=== PATIENT | male | born 1985 | race Two or more races ===

== ENCOUNTER 2020-03-28 22:09 | Emergency (ER) | payer OTHER, SELFPAY ==
[2020-03-28 22:19] VITALS: BP 126/73; PULSE 87; RESP 20; TEMP 37.2; O2SAT 100; BMI 24.8
[2020-03-28 23:27] VITALS: BP 128/84; PULSE 87; RESP 21; TEMP 37; O2SAT 100
[2020-03-28 23:36] VITALS: BP 125/90; PULSE 74
[2020-03-29 00:22] LABS: MANUAL DIFF FLAG NO
[2020-03-29 00:24] LABS: Basophils Percent Auto 0.4 % (0-2); Eosinophils Absolute Auto 0.1 X10*3/uL (0.0-0.4); Eosinophils Percent Auto 1.9 % (0-4); Hematocrit 43.3 % (42-52); Hemoglobin 15.2 g/dl (14.0-18.0); Imm Gran Abs Auto 0.02 X10*3/uL (0.00-0.03); Imm Gran Pct Auto 0.3 % (0.0-0.4); Lymphocytes Percent Auto 26.7 % (20-40); Mean Corpuscular HGB Conc 35.1 g/dl (31.0-36.0); Mean Corpuscular Hemoglobin 29.9 pg (27.0-33.0); Mean Corpuscular Volume 85.2 fL (80-98); Mean Platelet Volume 10.2 fL (9.4-12.4); Monocytes Absolute Auto 0.7 X10*3/uL (0.1-1.2); Monocytes Percent Auto 9.4 % (2-11); Neutrophils Absolute Auto 4.6 X10*3/uL (2.0-8.3); Neutrophils Percent Auto 61.3 % (45-73); Platelet Count 245 X10*3/uL (160-400); Red Blood Count 5.08 X10*6/uL (4.60-5.80); White Blood Count 7.5 X10*3/uL (4.8-10.8)
--- NOTE | 2020-03-29 00:45 | ED_ITS ---
HPI - Dizziness General Chief Complaint: General Medical Stated Complaint: dizzyness,SOB Time Seen by Provider: 03/28/20 23:27 History of Present Illness HPI Narrative: this is a 34-year-old male who is presenting with worsening feelings of lightheadedness as he is very clear that the room is not spinning and he states that this has been worsening since he was evaluated here in January. This is not been associated with any fevers, chills, recent travel, sore throat, cough, shortness of breath, chest pain / palpitations, speech or hearing changes. However he states that he is so dizzy throughout the day that he is unable to get up and has felt very fatigued. He endorses that he has been tested for COVID-19 at least twice and they have all been negative. In addition, he states he has been evaluated by his primary care provider yesterday and has been sent for a series of lab investigations. He denies any recent weight loss muscle or joint pain. 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 [facility] Past Medical History Medical History High cholesterol Social History Social History Alcohol intake: never Smoking Status: Never smoker Use of substances other than those prescribed or required for medical reasons: No Advance Directives: No Advance Directives Information Provided: No Physical Exam Vital Signs and I&O and Narrative: Vital Signs and I&O: Vital Signs Temp 98.6 F 03/28/20 23:27 Pulse 74 03/28/20 23:36 Resp 21 H 03/28/20 23:27 BP 125/90 H 10/03/20 23:36 Pulse Ox 100 03/28/20 23:27 Intake & Output 03/28/20 03/28/20 03/29/20 06:59 18:59 06:59 Weight 74.096 kg Body Mass Index 24.8 VITAL SIGNS: Reviewed. GENERAL: Well developed, well nourished, in no acute distress. HEAD: Normocephalic/atraumatic, EYES: PERRLA, EOMI intact without pain, no nystagmus/pallor/icterus noted EARS: Ext canals without abnormality, TMs non-bulging and non-erythematous NOSE: Nares patent bilateral OROPHARYNX: no oral lesions noted, posterior pharynx clear and non-erythematous without noted tonsillar enlargement/erythema/exudates NECK: Supple, no adenopathy LUNGS: Normal breath sounds. No adventitious sounds or accessory muscle use. SpO2<> CARDIOVASCULAR: Regular rate and rhythm without noted murmurs, no JVD or lower extremity edema. ABDOMEN: Soft, non-tender, non-distended with bowel sounds. No rigidity. No guarding. No palpable masses or hernias noted MUSCULOSKELETAL: No tenderness, deformities, or effusions noted on gross inspection. EXTREMITIES: No cyanosis, clubbing or edema. SKIN: Inspection of the skin reveals no rashes, ulcerations, jaundice, pallor, or petechiae. NEUROLOGIC: Alert and oriented x 4. Strength and sensation to light touch were grossly intact , ambulation without ataxia Course Course Hospital Course: This is a 34-year-old male with history and clinical presentation most suggestive of anxiety, but will evaluate for possible infectious, anemia, v olume, or electrolyte abnormalities. All of his previous workup from 02/18 was reviewed and at that time patient had a CT of the head as well as a CTA of the chest that were negative. Review of all lab work and imaging is negative for any acute findings. All results and findings were discussed with the patient at bedside and he was agreeable to being discharged with a mild anxiolytics and to be patient with the outpatient evaluation his primary care provider has started. MDM - Dizziness Lab Data Result diagrams: 03/29/20 00:15 03/29/20 00:15 Labs: Lab Results 03/29/20 03/29/20 Range/Units 00:15 00:15 WBC 7.5 (4.8-10.8) X10*3/uL RBC 5.08 (4.60-5.80) X10*6/uL Hgb 15.2 (14.0-18.0) g/dl Hct 43.3 (42-52) % MCV 85.2 (80-98) fL MCH 29.9 (27.0-33.0) pg MCHC 35.1 (31.0-36.0) g/dl RDW 12.0 (11.0-16.0) % Plt Count 245 (160-400) X10*3/uL MPV 10.2 (9.4-12.4) fL Immature Gran % (Auto) 0.3 (0.0-0.4) % Neut % (Auto) 61.3 (45-73) % Lymph % (Auto) 26.7 (20-40) % [place] % (Auto) 9.4 (2-11) % Eos % (Auto) 1.9 (0-4) % Baso % (Auto) 0.4 (0-2) % Neut # (Auto) 4.6 (2.0-8.3) X10*3/uL Lymph # (Auto) 2.0 (1.2-4.9) X10*3/uL [place] # (Auto) 0.7 (0.1-1.2) X10*3/uL Eos # (Auto) 0.1 (0.0-0.4) X10*3/uL Baso # (Auto) 0.0 (0.0-0.2) X10*3/uL Abs Immat Gran (auto) 0.02 (0.00-0.03) X10*3/uL Absolute Nucleated RBC 0.000 (0.0-0.012) X10*3/uL Nucleated RBC % (auto) 0.0 (0.0-0.2) /100WBC Sodium 140 (135-145) mmol/L Potassium 3.8 (3.3-5.1) mmol/l Chloride 107 (96-108) mmol/L Carbon Dioxide 26 (22-29) mmol/L Anion Gap 11 L (12-20) BUN 16 (9-16) mg/dL Creatinine 0.94 (0.5-1.4) mg/dL Estim Creat Clear Calc 107.1 Estimated GFR > 60 Random Glucose 114 (60-115) mg/dL Calcium 9.4 (8.4-10.2) mg/dL Total Bilirubin 0.4 (0.0-1.0) mg/dL AST 23 (5-37) U/L ALT 54 H (0-40) U/L Alkaline Phosphatase 128 H (39-117) U/L Total Protein 7.5 (6.5-8.0) g/dL Albumin 4.6 (3.5-5.0) g/dL TSH 0.44 (0.32-4.0) mIU/mL Discharge Plan Discharge Clinical Impression: Dizziness of unknown cause Patient Disposition: Home, Self-Care Instructions: Lightheadedness (ED) Additional Instructions: 1. Resume all home medications as prescribed. 2. continue to stay well hydrated. The patient and/or family acknowledge understanding of results (as applicable), diagnosis, treatment plan, need for follow up, and symptoms that should prompt a return to the emergency room. For example, fevers /chills/diarrhea. Prescriptions: New hydroxyzine HCl 50 mg tablet 50 mg PO TID PRN (Reason: anxiety) Qty: 7 RF: 0 No Action meclizine 25 mg tablet 1 tab PO Q8H PRN (Reason: dizziness) RF: 0 Referrals: Physician,Unknown [Primary Care Provider] - 2 days ( for further outpatient workup regarding your dizziness.)
[2020-03-29 00:49] LABS: Alanine Aminotransferase 54 U/L (0-40); Albumin Level 4.6 g/dL (3.5-5.0); Alkaline Phosphatase 128 U/L (39-117); Anion Gap 11 (12-20); Aspartate Amino Transferase 23 U/L (5-37); Bilirubin Total 0.4 mg/dL (0.0-1.0); Blood Urea Nitrogen 16 mg/dL (9-16); Calcium 9.4 mg/dL (8.4-10.2); Carbon Dioxide 26 mmol/L (22-29); Chloride 107 mmol/L (96-108); Creatinine Clr Calc Pharmacy 107.1; Estimated Glomerular Filt Rate > 60; Glucose Random 114 mg/dL (60-115); Potassium 3.8 mmol/l (3.3-5.1); Sodium 140 mmol/L (135-145); Total Protein 7.5 g/dL (6.5-8.0)
--- NOTE | 2020-03-29 01:05 | US_ITS ---
EXAMINATION: ABDOMINAL ULTRASOUND LIMITED CLINICAL INFORMATION: Right upper quadrant pain. COMPARISON: None. TECHNIQUE: Real-time imaging of the right upper quadrant abdominal viscera. FINDINGS: PANCREAS: The visualized pancreatic head and body are normal in appearance. The remainder of the pancreas is obscured from visualization by the overlying bowel gas. LIVER: The liver is of normal size and echogenicity without focal lesions nor intrahepatic biliary ductal dilation. GALLBLADDER: There are calculi within the gallbladder lumen. There is no gallbladder wall thickening or pericholecystic fluid. COMMON BILE DUCT: Normal in caliber measuring 0.2 cm in diameter. RIGHT KIDNEY: Normal. No hydronephrosis. No renal calculi or focal parenchymal lesions. The kidney measures 11.7 cm in maximum dimension. FREE FLUID: None. IMPRESSION: Cholelithiasis without evidence of cholecystitis.
[2020-03-29 01:10] LABS: TSH reflex Free T4 0.44 mIU/mL (0.32-4.0)
== END 2020-03-29 03:41 | disposition home or self-care (01) ==
PROVIDERS: Emergency Provider Student in an Organized Health Care Education/Training Program
DX: R42 Dizziness and giddiness (principal)
CPT/HCPCS: 36415; 76705; 80053; 84443; 85025; 99284

== ENCOUNTER 2020-03-29 08:30 | Emergency (ER) | payer OTHER, SELFPAY ==
--- NOTE | 2020-03-29 | CT_ITS ---
EXAMINATION: CT HEAD WITHOUT CONTRAST CLINICAL INFORMATION: Left-sided headache. Vision changes. Dizziness. COMPARISON: CT scan of the head dated 02/19/2020. TECHNIQUE: Contiguous axial imaging was performed from the skull base to vertex without intravenous administration of contrast. This CT examination was performed using dose optimization techniques as appropriate, variously including the following: *Automated exposure control *Adjustment of mA and/or kV according to patient size (this includes techniques or standardized protocols for targeted exams where dose is matched to indication/reason for exam; i.e. extremities or head) *Use of iterative reconstruction technique DLP: 672.66 mGy-cm FINDINGS: There is no evidence of acute intracranial hemorrhage or territorial infarction. No abnormal mass effect or midline shift is seen. Jules to white matter differentiation is well preserved. No extra-axial fluid collections are identified. The ventricles are normal in size. There is no abnormal attenuation within the brain parenchyma. The osseous structures and soft tissues are normal. The mastoid air cells and visualized portions of the paranasal sinuses are well aerated. IMPRESSION: No acute intracranial pathology.
[2020-03-29 08:39] VITALS: PULSE 75; RESP 16; TEMP 36.8; O2SAT 98; BMI 24.7
[2020-03-29] MEDS: Meclizine HCl 25 MG TABLET 50 MG PO (09:43)
[2020-03-29 09:45] VITALS: BP 126/86; PULSE 73; RESP 16; TEMP 37; O2SAT 99
--- NOTE | 2020-03-29 11:05 | MR_ITS ---
MRI OF THE BRAIN WITHOUT IV CONTRAST INDICATION: Headache, numbness, dizziness, and vision changes. COMPARISON: Head CT performed earlier the same day. TECHNIQUE: Multiplanar multisequence MR imaging of the brain was obtained without IV contrast. FINDINGS: There is no hydrocephalus, extra-axial surface collection, or herniation. No parenchymal signal abnormality. The major flow voids at the skull base are preserved. There is no acute infarct on diffusion-weighted imaging. There is no intracranial hemorrhage on the gradient recalled echo acquisition. The midline structures are normal. The cerebellar tonsils are normally positioned. The cerebellum and brainstem are normal. The craniocervical junction is normal. Osseous marrow signal intensity is homogenous. The visualized soft tissues are unremarkable. IMPRESSION: Unremarkable noncontrast MRI of the brain.
[2020-03-29 11:07] VITALS: BP 118/82; PULSE 73; RESP 16; O2SAT 98
[2020-03-29 12:25] VITALS: BP 125/87; PULSE 72; RESP 15; TEMP 37.1; O2SAT 99
--- NOTE | 2020-03-29 17:20 | ED_ITS ---
HPI - Headache General Chief Complaint: Headache Stated Complaint: headache Time Seen by Provider: 03/29/20 08:45 Source: patient Mode of arrival: ambulatory Limitations: no limitations History of Present Illness HPI Narrative: Otherwise healthy 34-year-old male who presents ambulatory via triage with complaint of left-sided headache that goes to the front from the occipital lobe and some vision changes right eye. It is basically he reports to me that 38 days ago he started having vague dizziness and constellation of other symptoms for which she has been seen here several times in the ER he has had a battery of testing including CT scan of his brain, CTA of the chest, work including thyroid testing cardiac enzymes and ultrasound of the abdomen for his symptoms. States his symptoms are now the fact that he is having the left-sided headache and some dizziness which this morning after leaving the ED he went to sleep in several hours later he woke up with the headache just 1 hour prior to arrival. States his vision with diminished in the right side. Headache as described as ache and dizziness is described as feeling off but not room spinning. He otherwise denies chest pain or shortness of breath. He is very punctual and his history and tells me that he has been here as well as to [facility]. MD elicited complaint: headache Onset (ago): minute(s) Onset description: gradually Location: left, frontal and occipital Severity: moderate Quality & Timing: aching Related Data Home Medications Medication Instructions Recorded Confirmed meclizine 1 tab PO Q8H PRN 03/29/20 03/29/20 Previous Rx's Medication Instructions Recorded hydroxyzine HCl 50 mg PO TID PRN #7 tab 03/29/20 Allergies Allergy/AdvReac Type Severity Reaction Status Date / Time No Known Allergies Allergy Verified 03/28/20 22:18 [No Known Allergies*] Review of Systems Review of Systems: Constitutional: No Weight loss, No Fever, No Chills, No Night Sweats, No Fatigue, No Malaise ENT/Mouth: No Hearing loss, No Ear Pain, No Nasal Congestion, No Sinus Pain, No Hoarseness, No sore throat, No Rhinorrhea, No Swallowing Difficulty Eyes: No Eye Pain, No Swelling, No Redness, No Foreign Body, No Discharge, No Vision Changes Cardiovascular: No Chest Pain, No SOB, No Dyspnea on Exertion, No Orthopnea, No Edema, No Palpitations Respiratory: No Cough, No Sputum, No Wheezing, No Smoke Exposure, No Dyspnea Gastrointestinal: No Nausea, No Vomiting, No Diarrhea, No Constipation, No abdominal Pain, No Hematochezia, No Melena Genitourinary: no irregular bleeding, No Dysuria, No Urinary Frequency, No Hematuria, No Urinary Incontinence, No Urgency, No Flank Pain, No Urinary Flow Changes, No Hesitancy Musculoskeletal: No joint pain, No Myalgias, No Joint Swelling Skin: No Skin Lesions, No rash Neuro: No Weakness, No Numbness, No Paresthesias, No Loss of Consciousness, + Dizziness, + Headache Psych: No Anxiety/Panic, No Depression, No SI/HI/AH/VH, No Social Issues, Heme/Lymph: No Bruising, No Bleeding,No Lymphadenopathy Endocrine: No Polyuria, No Polydipsia, No Temperature Intolerance [facility] Past Medical History Attestation statement: The following information was validated with the patient. Medical History High cholesterol Social History Social History Alcohol intake: never Smoking Status: Never smoker Smoked in Last 30 Days: No Use of substances other than those prescribed or required for medical reasons: Unknown Advance Directives: No Advance Directives Information Provided: No Physical Exam Vital Signs and I&O and Narrative: Vital Signs and I&O: Vital Signs Temp 98.7 F 03/29/20 12:25 Pulse 72 03/29/20 12:25 Resp 15 03/29/20 12:25 BP 125/87 03/29/20 12:25 Pulse Ox 99 03/29/20 12:25 Intake & Output 03/28/20 03/29/20 03/29/20 18:59 06:59 18:59 Weight 73.936 kg Body Mass Index 24.7 Const: General: cooperative and healthy appearing; No acute distress or intoxicated appearing Nutritional Appearance: average body habitus Orientation/consciousness: patient oriented x3 HENMT: Head: Yes normal to inspection Ears: hearing grossly normal bilaterally Eyes: General: appearance normal, both eyes and all related structures Visual Barton: normal visual barton by confrontation Neck: Neck: Yes normal visual inspection, No positive Brudzinski's sign, No positive Kernig's sign and No tender Thyroid: Thyroid normal Chest: Chest palpation & inspection: normal inspection of the chest Resp: Effort & Inspection: normal respiratory effort Cardio: Jugular venous distension: no JVD GI: Inspection: Yes normal to inspection Percussion: Yes normal to percussion Auscultation: normal bowel sounds : General: Yes no CVA tenderness Back/Spine/Pelvis: Back: no CVA tenderness Skin: General skin exam: no rashes or lesions noted Neuro: General: patient oriented x3 Extrem: General: Yes normal to inspection Course Course Hospital Course: Given 50 of meclizine p.o.. Resting comfortably. Given the acuity of symptoms CTA of the brain was done this was negative. Case discussed with attending recommendation for MRI. Labs reviewed from several hours ago during the previous visit. No need to repeat labs. Reevaluation(s) Reevaluation #1: Has been sleeping comfortably. Did get out of bed to go to bathroom with steady gait. CT of the brain negative. MRI pending. Reevaluation #2: I suspect his symptoms has a component of anxiety although there are no acute findings on the CT and MRI of the brain. He had a battery of testing done. He does appointment coming up with his primary care doctor who ordered a better testing on Monday including Lyme test and such. He will follow-up with him copy of his workup provided. At this time is well nontoxic appearing. He was given hydroxyzine on the previous visit advised to continue taking this. Clear precaution return follow-up provided. He is stable for discharge. Consultations Consultation #1: Attending Dr. Barrera MDM - Headache Differential Diagnosis Differential diagnosis: Likely migraine, tension headache and headache; Unlikely subarachnoid hemorrhage, meningitis, sinusitis and postconcussion syndrome Medical Records Medical records narrative: MS, BPV Lab Data Attestation: I reviewed the patient's lab results. Imaging Data MRI - head: Radiologist's impression: [address] [address] Magnetic Resonance Report Signed Patient: Roe Kaplan#: [id number] : 1985Acct:[id number] Age/Sex: 34 / MADM Date: 03/29/20 Loc: HO.ED Attending Dr: Ordering Physician: Galen Thapa NP Date of Service: 03/29/20 Procedure(s): MR head/brain wo con Accession Number(s): [id number] cc: ~ MRI OF THE BRAIN WITHOUT IV CONTRAST INDICATION: Headache, numbness, dizziness, and vision changes. COMPARISON: Head CT performed earlier the same day. TECHNIQUE: Multiplanar multisequence MR imaging of the brain was obtained without IV contrast. FINDINGS: There is no hydrocephalus, extra-axial surface collection, or herniation. No parenchymal signal abnormality. The major flow voids at the skull base are preserved. There is no acute infarct on diffusion-weighted imaging. There is no intracranial hemorrhage on the gradient recalled echo acquisition. The midline structures are normal. The cerebellar tonsils are normally positioned. The cerebellum and brainstem are normal. The craniocervical junction is normal. Osseous marrow signal intensity is homogenous. The visualized soft tissues are unremarkable. IMPRESSION: Unremarkable noncontrast MRI of the brain. Dictated By:JESSIE CHA MD Signed By:<Electronically signed by JESSIE CHA MD in OV>03/29/20 1209 DD/ 1105 TD/TT: Wrapper Stemmer Operator: HANDY CT scan - head: Radiologist's impression: [address] [address] [address] Scan Report Signed Patient: Roe Kaplan#: [id number] : 1985Acct:[id number] Age/Sex: 34 / MADM Date: 03/29/20 Loc: HO.ED Attending Dr: Ordering Physician: Galen Thapa NP Date of Service: 03/29/20 Procedure(s): CT head/brain wo con Accession Number(s): [id number] cc: ~ EXAMINATION: CT HEAD WITHOUT CONTRAST CLINICAL INFORMATION: Left-sided headache. Vision changes. Dizziness. COMPARISON: CT scan of the head dated 02/19/2020. TECHNIQUE: Contiguous axial imaging was performed from the skull base to vertex without intravenous administration of contrast. This CT examination was performed using dose optimization techniques as appropriate, variously including the following: *Automated exposure control *Adjustment of mA and/or kV according to patient size (this includes techniques or standardized protocols for targeted exams where dose is matched to indication/reason for exam; i.e. extremities or head) *Use of iterative reconstruction technique DLP: 672.66 mGy-cm FINDINGS: There is no evidence of acute intracranial hemorrhage or territorial infarction. No abnormal mass effect or midline shift is seen. Jules to white matter differentiation is well preserved. No extra-axial fluid collections are identified. The ventricles are normal in size. There is no abnormal attenuation within the brain parenchyma. The osseous structures and soft tissues are normal. The mastoid air cells and visualized portions of the paranasal sinuses are well aerated. IMPRESSION: No acute intracranial pathology. Dictated By:TON FLEMING MD Signed By:<Electronically signed by TON FLEMING MD in OV>03/29/20 1012 DD/ 0949 TD/TT: Wrapper Stemmer Operator: JERMOY Discharge Plan Discharge Clinical Impression: Dizziness of unknown cause Patient Disposition: Home, Self-Care Instructions: Dizziness (ED) Additional Instructions: Have given you the blood work copy as well as the copy of all the imaging- please follow-up with primary care doctor as planned return if any concerns or worsening symptoms. Prescriptions: No Action meclizine 25 mg tablet 1 tab PO Q8H PRN (Reason: dizziness) RF: 0 hydroxyzine HCl 50 mg tablet 50 mg PO TID PRN (Reason: anxiety) Qty: 7 RF: 0 Referrals: Baldev Brooks MD [Primary Care Provider] - 2 days Interventions: ED Discharge Assessment Last Done: 03/29/20 13:57 Discharge Date/Time: 03/29/20 13:58
== END 2020-03-29 13:58 | disposition home or self-care (01) ==
PROVIDERS: Emergency Provider Emergency Medicine; PCP Pediatrics
DX: R42 Dizziness and giddiness (principal); R51.9 Headache, unspecified
CPT/HCPCS: 70450; 70551; 99284; 99285

== ENCOUNTER → 2020-07-06 09:10 | Outpatient (REF) | payer OTHER, SELFPAY ==
--- NOTE | 2020-07-06 09:15 | CA_ITS ---
Acquisition Time: 2020-07-06 10:26:32 Total Exercise Time: 00:08:03 Test Indications: CHEST PAIN, SHORTNESS OF BREATH Medications: SEE CHART Protocol: SANA Max HR: 164 BPM 88% of Pred: 185 BPM Max BP: 152/090 mmHG Max Work Load: 10.1 METS Exercise stress test using Sana protocol. Tolerated well, Denies any anginal sx. EKG without any arrhythmias, no ischemic changes seen in peak exercise. 4 min [address] inversion in lead 3. Normotensive response to exercise. Test reviewed with Dr. Gilliam. Referred By: Pedro Luis Oconnor Overread By: Destiney Quispe
== END ==
LOC: HO.CARD 09:10
PROVIDERS: Visit Provider Internal Medicine Cardiovascular Disease
DX: R42 Dizziness and giddiness (principal)
CPT/HCPCS: 93017